=== PATIENT | female | born 1970 | race Caucasian/White ===

== ENCOUNTER 2017-03-17 22:16 | Emergency (ER) | payer OTHER ==
[2017-03-17] MEDS ORDERED: Nitrostat 0.4 MG (ED) SL ONE (22:36)
[2017-03-17] MEDS ORDERED: Zofran 4 MG/2 ML VIAL ONE (22:36)
[2017-03-17] MEDS ORDERED: MORPHINE SULFATE 2 MG INJ ONE (22:36)
[2017-03-17] MEDS ORDERED: Effient 10 MG TABLET ONE (22:37)
[2017-03-17] MEDS ORDERED: Ntg 0.2MG/Ml in D5W GLASS*** 250 ML IV ONE (22:37)
[2017-03-17 22:39] VITALS: O2SAT 99
[2017-03-17 22:44] LABS: BASOPHIL % 0.1 % (0.0-0.4); Eosinophil % 2.5 % (0.00-5.0); Granulocytes % 62.9 % (36.0-66.0); INR 0.98 (0.8-3.0); Lymphocytes % 26.8 % (24.0-44.0); Mean Cell Volume 90.1 fl (78-100); Mean Corpuscular Hemoglobin 30.1 pg (26-32); Mean Platelet Volume 12.2 fl (6-9.5); Monocytes % 7.7 % (0.0-12.0); PROTIME 11.1 SECONDS (9.95-12.35); Platelet Count 290 K/mm3 (150-450); Red Blood Count 4.75 M/mm3 (4.1-5.4); Red Cell Distribution Width 13.5 % (11.5-14.0); White Blood Count 13.9 K/mm3 (4.0-10.5)
--- NOTE | 2017-03-17 22:44 | ERPHSYRPT ---
- History of Present Illness Time Seen by Provider: 03/17/17 22:25 Source: patient Exam Limitations: no limitations Physician History: FOR THE PAST 7 DAYS PT HAS HAD SHORTNESS OF AIR AND INTERMITTENT ANTERIOR CHEST PAIN RADIATING DOWN BOTH ARMS LASTING UP TO 90 MINUTES PER EPISODE; FOR THE PAST 5 DAYS DIAPHORESIS, CHILLS AND SORE THROAT. PT HAS BEEN TAKING AUGMENTIN FOR THE PAST 5 DAYS. PT DENIES ABDOMINAL PAIN, VOMITING, RASH. Allergies/Adverse Reactions: No Known Drug Allergies Allergy (Unverified 03/17/17 22:44) Home Medications: Alprazolam 1 mg [Xanax 1 mg] 1 mg PO DAILY 03/17/17 [History] Aspirin 325 mg PO DAILY 03/17/17 [History] Bupropion HCl 150 mg Sr [Wellbutrin SR 150 MG] 150 mg PO BID 03/17/17 [ History] Carvedilol 6.25 mg [Coreg 6.25 MG] 1 tab PO BID 03/17/17 [History] Lisinopril 10 mg PO DAILY 03/17/17 [History] Ranitidine HCl [Zantac] 150 mg PO DAILY 03/17/17 [History] - Review of Systems Constitutional: Chills Ears, Nose, & Throat: Throat Pain Respiratory: Dyspnea Cardiac: Chest Pain Endocrine: Excessive Sweating All Other Systems: Reviewed and Negative - Nursing Vital Signs Nursing Vital Signs: Initial Vital Signs Temperature 97.5 F 03/17/17 22:17 Pulse Rate 82 03/17/17 22:17 Respiratory Rate 16 03/17/17 22:17 Blood Pressure 177/127 03/17/17 22:17 O2 Sat by Pulse Oximetry 99 03/17/17 22:17 Pain Scale Pain Intensity 8 - Physical Exam General Appearance: alert Eye Exam: PERRL/EOMI Ears, Nose, Throat Exam: TMs normal, pharynx normal, moist mucous membranes Neck Exam: normal inspection Respiratory Exam: lungs clear Cardiovascular Exam: normal heart sounds Gastrointestinal/Abdomen Exam: soft, normal bowel sounds Back Exam: normal range of motion Extremity Exam: No pedal edema Neurologic Exam: alert, cooperative Skin Exam: warm, dry - Course Nursing assessment & vital signs reviewed: Yes EKG Interpreted by Me: RATE (76), Sinus Rhythm, NORMAL AXIS, NORMAL INTERVALS, ST Elev (V1 -V4) Ordered Tests: Active Orders 24 hr Category Date Time Status Portfolio Consultant STAT Care 03/17/17 22:35 Active EKG-ER Only STAT Care 03/17/17 22:29 Active IV Insertion STAT Care 03/17/17 22:29 Active Oxygen-ED Only NASAL CANNULA 4 lpm Care 03/17/17 22:29 Active Pulse Oximetry (ED) STAT Care 03/17/17 22:29 Active CHEST 1 VIEW (PORTABLE) Stat Exams 03/17/17 22:35 Taken AMYLASE Stat Lab 03/17/17 22:30 Received CBC W DIFF Stat Lab 03/17/17 22:30 Completed CMP Stat Lab 03/17/17 22:30 Received LIPASE Stat Lab 03/17/17 22:30 Received MAGNESIUM Stat Lab 03/17/17 22:30 Received NT PRO BNP Stat Lab 03/17/17 22:30 Received PROTIME WITH INR Stat Lab 03/17/17 22:30 Completed PTT Stat Lab 03/17/17 22:30 Completed TROPONIN Q3H Lab 03/17/17 22:30 Received TROPONIN Q3H Lab 03/18/17 01:45 Ordered TROPONIN Q3H Lab 03/18/17 04:45 Ordered TROPONIN Q3H Lab 03/18/17 07:45 Ordered TROPONIN Q3H Lab 03/18/17 10:45 Ordered Medication Summary Discontinued Medications Generic Name Dose Route Start Last Admin Trade Name Freq PRN Reason Stop Dose Admin Nitroglycerin/Dextrose Confirm 03/17/17 22:37 Ntg 0.2mg/Ml In D5w Glass Administered 03/17/17 22:38 Dose 250 mls @ ud IV .STK-MED ONE Morphine Sulfate Confirm 03/17/17 22:36 Morphine Sulfate 2 Mg Inj Administered 03/17/17 22:37 Dose 2 mg .ROUTE .STK-MED ONE Nitroglycerin Confirm 03/17/17 22:36 Nitrostat 0.4 Mg (Ed) Administered 03/17/17 22:37 Dose 0.4 mg SL .STK-MED ONE Ondansetron HCl Confirm 03/17/17 22:36 Zofran 4 Mg/2 Ml Vial Administered 03/17/17 22:37 Dose 4 mg .ROUTE .STK-MED ONE Prasugrel Confirm 03/17/17 22:37 Effient 10 Mg Tablet Administered 03/17/17 22:38 Dose 60 mg .ROUTE .STK-MED ONE Lab/Rad Data: Laboratory Result Diagrams 03/17/17 22:30 Laboratory Results 03/17/17 03/17/17 Range/Units 22:30 22:30 WBC 13.9 H (4.0-10.5) K/mm3 RBC 4.75 (4.1-5.4) M/mm3 Hgb 14.3 (12.0-16.0) gm/dl Hct 42.8 (35-47) % MCV 90.1 (78-100) fl MCH 30.1 (26-32) pg MCHC 33.4 (32-36) g/dl RDW 13.5 (11.5-14.0) % Plt Count 290 (150-450) K/mm3 MPV 12.2 H (6-9.5) fl Gran % 62.9 (36.0-66.0) % Lymphocytes % 26.8 (24.0-44.0) % Monocytes % 7.7 (0.0-12.0) % Eosinophils % 2.5 (0.00-5.0) % Basophils % 0.1 (0.0-0.4) % Basophils # 0.02 (0-0.4) INR 0.98 (0.8-3.0) APTT 33.0 (25.3-37.0) SECONDS - Progress Discussed with Dr.: Other (SPOKE WITH DR KUMAR(ER DR)([id number]) WHO ACCEPTED PT FOR TRANSFER TO [facility].) - Departure Time of Disposition: 22:52 Departure Disposition: Transfer ([facility]) Clinical Impression: ACUTE FL Condition: Stable Critical Care Time: No Referrals: MADALYN JIMENEZ [Primary Care Provider] -
[2017-03-17] MEDS ORDERED: Sodium Chloride 0.9% 1000 ML 1,000 ML ONE (22:56)
[2017-03-17 22:58] VITALS: BP 134/95; PULSE 86
[2017-03-17 22:59] LABS: ALBUMIN 3.5 g/dL (3.4-5.0); ALKALINE PHOSPHATASE 101 U/L (46-116); ANION GAP 15.5 MEQ/L (5-15); BLOOD UREA NITROGEN 12 mg/dL (9-20); CHLORIDE 103 mEq/L (98-107); Glucose 113 MG/DL (70-110); LIPASE 179 U/L (73-393); MAGNESIUM 1.6 mg/dL (1.8-2.4); Potassium 3.9 mEq/L (3.5-5.1); SGOT/AST 25 U/L (15-37); SGPT/ALT 24 U/L (12-78); SODIUM 138 mEq/L (136-145); Total Protein 7.7 gm/dL (6.4-8.2)
--- NOTE | 2017-03-18 16:41 | XRAY ---
Exam: AP portable chest film from 2240 hrs. on 03/17/2017. Comparison: AP upright portable chest film from 04/01/2008. Indication: Pain. Findings: Slight motion artifact is noted. Multiple leads overlie the chest. The heart size and contour are normal. The lungs are adequately inflated. No gross infiltrates, central vascular congestion, pneumothorax, or pleural fluid is seen. No acute osseous abnormalities are seen. There is slight convexity of the upper mid thoracic spine toward the right. Impression: 1. Mildly limited AP portable chest radiograph revealing no acute cardiopulmonary disease.
== END 2017-03-17 23:00 | disposition short-term general hospital (02) ==
LOC: ED 22:16
DX: I21.3 ST elevation (STEMI) myocardial infarction of unspecified site (principal); R07.9 Chest pain, unspecified; R06.00 Dyspnea, unspecified; R61 Generalized hyperhidrosis
CPT/HCPCS: 36000; 36415; 71010; 80053; 82150; 83690; 83735; 83880; 84484; 85025; 85610; 85730; 93005; 93041; 96360; 96365; 96374; 96375; 99291; J2270; J2405; A9270-GY

== ENCOUNTER 2021-04-16 17:25 | Emergency (ER) | payer OTHER ==
[2021-04-16 17:50] LABS: Absolute Neutrophil Ct (ANC) 10.53 (1.4-6.9); BASOPHIL % 0.3 % (0.0-0.4); Basophil (Absolute #) 0.04 (0-0.4); Eosinophil % 2.3 % (0.00-5.0); Eosinophil (Absolute #) 0.32 (0-0.5); Hematocrit 43.4 % (35-47); Hemoglobin 14.2 gm/dl (12.0-16.0); Lymphocyte (Absolute #) 2.42 (1.0-4.6); Lymphocytes % 17.3 % (24.0-44.0); Mean Cell Volume 95.2 fl (78-100); Mean Corpuscular Hemoglobin 31.1 pg (26-32); Mean Corpuscular Hgb Concent. 32.7 g/dl (32-36); Mean Platelet Volume 11.2 fl (7.5-11.0); Monocyte (Absolute #) 0.71 (0.0-1.3); Monocytes % 5.1 % (0.0-12.0); Platelet Count 355 K/mm3 (150-450); Red Blood Count 4.56 M/mm3 (4.1-5.4); Red Cell Distribution Width 13.7 % (11.5-14.0)
[2021-04-16 17:59] LABS: INR 0.94 (0.8-3.0); PROTIME 11.1 SECONDS (9.4-12.5)
[2021-04-16 18:02] LABS: PTT 28.6 SECONDS (25.1-36.5)
[2021-04-16 18:12] LABS: ALBUMIN 4.1 g/dL (3.5-5.0); ALKALINE PHOSPHATASE 77 U/L (38-126); ANION GAP 11.6 MEQ/L (5-15); BLOOD UREA NITROGEN 19 mg/dL (7-17); CHLORIDE 101 mmol/L (98-107); Calcium 8.8 mg/dL (8.4-10.2); Carbon Dioxide 26 mmol/L (22-30); Creatinine 1 0.83 mg/dL (0.52-1.04); EST GLOMERULAR FILTRATION RATE > 60.0 ML/MIN; Glucose 160 mg/dL (74-106); Potassium 3.6 mmol/L (3.5-5.1); SGOT/AST 19 U/L (14-36); SGPT/ALT 16 U/L (0-35); SODIUM 135 mmol/L (137-145); Total Protein 7.4 g/dL (6.3-8.2)
--- NOTE | 2021-04-16 18:17 | ERPHSYRPT ---
- History of Present Illness Historian: patient Exam Limitations: other (Poor historian) Patient Subjective Stated Complaint: Chest pain Triage Nursing Assessment: Patient ambulated back to ED and transferred self to bed. Patient A+O X3. Patient's skin pink, warm and dry. Patient states she has been having chest pains on and off all day. Patient had called EMS prior to c oming into ED but decided to bring self. Patient currently denies pain or discomfort. Lungs clear a/p keshawn. no edema noted. Physician History: 50 yo wf w h/o ME/Stents x2/HTN/hyperlipidemia/tobacco abuse present w mid- sternal chest pain x10hrs. Pt is pain free upon arrival but has been up to a 7. It has been sharp wo radiation and accompanied w nausea/diaphoresis wo vomi ting/dyspnea. Pt states that pain was made better w SL NTG x4. She has not taken any of her meds x 1-2 months and has not taken an ASA today. Timing/Duration: today (10hrs) Activities at Onset: rest Quality: sharpness Location: substernal, central Chest Pain Radiation: no radiation Severity of Pain-Max: moderate Severity of Pain-Current: none Modifying Factors: Improves With: nitroglycerin Associated Symptoms: nausea, diaphoresis, No vomiting, No palpitations, No heartburn, No abdominal pain, No shortness of breath, No cough, No hurts to breathe, No chills, No fever, No fatigue, No weakness, No swelling/lump in chest, No syncope, No rash, No headache, No dizziness, No edema Prior Chest Pain/Cardiac Workup: heart attack Nitro Today/Relief: 0.4 mg x 4, provided at home Aspirin Treatment Today: no aspirin today Allergies/Adverse Reactions: No Known Drug Allergies Allergy (Verified 04/16/21 17:26) Hx Influenza Vaccination/Date Given: No Hx Pneumococcal Vaccination/Date Given: No Immunizations Up to Date: Yes Travel Risk - International Travel Have you traveled outside of the country in past 3 weeks: No - Coronavirus Screening Are you exhibiting any of the following symptoms?: No Close contact with a COVID-19 positive Pt in past 14-21 Days: No - Vaccine Status Have you recieved a Covid-19 vaccination: No - Review of Systems Constitutional: No Symptoms Eyes: No Symptoms Ears, Nose, & Throat: No Symptoms Respiratory: No Symptoms Cardiac: No Symptoms, Chest Pain Abdominal/Gastrointestinal: Nausea, No Abdominal Pain, No Vomiting, No Diarrhea, No Constipation, No Hematemesis, No Hematochezia, No Melena, No Dysphagia, No Appetite Changes Genitourinary Symptoms: No Symptoms Musculoskeletal: No Symptoms Skin: No Symptoms Neurological: No Symptoms Psychological: No Symptoms Endocrine: No Symptoms Hematologic/Lymphatic: No Symptoms Immunological/Allergic: No Symptoms - Past Medical History Pertinent Past Medical History: Yes Cardiac History: Hypertension, Myocardial Infarction (ME) GI Medical History: GERD Psycho-Social History: Anxiety - Past Surgical History Past Surgical History: Yes Cardiac: Cardiac Catheterization, Cardiac Stent Respiratory: No Pertinent History Gastrointestinal: No Pertinent History Genitourinary: No Pertinent History Musculoskeletal: No Pertinent History Female Surgical History: Tubal Ligation Other Surgical History: Stents X 2 in 2017 - Social History Smoking Status: Current every day smoker How long have you smoked: years Exposure to second hand smoke: No Drug Use: marijuana Patient Lives Alone: No Significant Family History: no pertinent family hx - Female History Hx Last Menstrual Period: few days ago Hx Now: No - Nursing Vital Signs Nursing Vital Signs: Initial Vital Signs Temperature 98.0 F 04/16/21 17:27 Pulse Rate 77 04/16/21 17:27 Respiratory Rate 18 04/16/21 17:27 Blood Pressure 114/95 04/16/21 17:27 O2 Sat by Pulse Oximetry 100 04/16/21 17:27 Pain Scale Pain Intensity 0 WNL - Physical Exam General Appearance: no apparent distress, anxiety Eye Exam: PERRL/EOMI, eyes nml inspection Ears, Nose, Throat Exam: normal ENT inspection, TMs normal, pharynx normal, moist mucous membranes Neck Exam: normal inspection, non-tender, supple, full range of motion, No meningismus, No mass, No Brudzinski, No Kernig's, No carotid bruit, No JVD Respiratory Exam: normal breath sounds, lungs clear, airway intact, No chest tenderness, No respiratory distress Cardiovascular Exam: regular rate/rhythm, normal heart sounds, normal peripheral pulses, capillary refill <2 sec, No murmur Gastrointestinal/Abdomen Exam: soft, normal bowel sounds, No tenderness Back Exam: normal inspection, normal range of motion, No CVA tenderness Extremity Exam: normal inspection, normal range of motion Neurologic Exam: alert, oriented x 3, cooperative, senior tax specialist II-XII nml as tested, normal mood/affect, nml cerebellar function, nml station & gait, sensation nml Skin Exam: normal color, warm, dry Lymphatic Exam: No adenopathy SpO2 Interpretation: normal SpO2: 100 O2 Delivery: Room Air - Course Nursing assessment & vital signs reviewed: Yes EKG Interpreted by Me: RATE (NSR/R81/Prolonged QTc/No acute ST changes) - Radiology Exams Chest X-ray Interpretation: Interpreted by me (CXR-NAD) Ordered Tests: Active Orders 24 hr Category Date Time Status EKG-ER Only STAT Care 04/16/21 17:36 Completed IV Insertion STAT Care 04/16/21 17:36 Completed CHEST 1 VIEW (PORTABLE) Stat Exams 04/16/21 17:36 Taken CBC W DIFF Stat Lab 04/16/21 17:40 Completed CMP Stat Lab 04/16/21 17:40 Completed NT PRO BNP Stat Lab 04/16/21 17:40 Completed PROTIME WITH INR Stat Lab 04/16/21 17:40 Completed PTT Stat Lab 04/16/21 17:40 Completed TROPONIN Q3H Lab 04/16/21 17:40 Completed TROPONIN Q3H Lab 04/16/21 19:50 Completed TROPONIN Q3H Lab 04/16/21 23:45 Ordered Medication Summary Discontinued Medications Generic Name Dose Route Start Last Admin Trade Name Capoq PRN Reason Stop Dose Admin Aspirin 324 mg 04/16/21 18:19 04/16/21 18:22 Baby Aspirin 81 Mg Chew PO 04/16/21 18:20 324 mg STAT ONE Administration Aspirin Confirm 04/16/21 18:21 Baby Aspirin 81 Mg Chew Administered 04/16/21 18:22 Dose 324 mg .ROUTE .STK-MED ONE Lab/Rad Data: Laboratory Result Diagrams 04/16/21 17:40 04/16/21 17:40 Laboratory Results 04/16/21 04/16/21 04/16/21 Range/Units 19:50 17:40 17:40 WBC (4.0-10.5) K/mm3 RBC (4.1-5.4) M/mm3 Hgb (12.0-16.0) gm/dl Hct (35-47) % MCV (78-100) fl MCH (26-32) pg MCHC (32-36) g/dl RDW (11.5-14.0) % Plt Count (150-450) K/mm3 MPV (7.5-11.0) fl Gran % (36.0-66.0) % Eos # (Auto) (0-0.5) Absolute Lymphs (auto) (1.0-4.6) Absolute Monos (auto) (0.0-1.3) Lymphocytes % (24.0-44.0) % Monocytes % (0.0-12.0) % Eosinophils % (0.00-5.0) % Basophils % (0.0-0.4) % Absolute Granulocytes (1.4-6.9) Basophils # (0-0.4) PT 11.1 (9.4-12.5) SECONDS INR 0.94 (0.8-3.0) APTT 28.6 (25.1-36.5) SECONDS Sodium (137-145) mmol/L Potassium (3.5-5.1) mmol/L Chloride (98-107) mmol/L Carbon Dioxide (22-30) mmol/L Anion Gap (5-15) MEQ/L BUN (7-17) mg/dL Creatinine (0.52-1.04) mg/dL Estimated GFR ML/MIN Glucose (74-106) mg/dL Calcium (8.4-10.2) mg/dL Total Bilirubin (0.2-1.3) mg/dL AST (14-36) U/L ALT (0-35) U/L Alkaline Phosphatase (38-126) U/L Troponin I < 0.012 < 0.012 (0.000-0.034) ng/mL NT-Pro-B Natriuret Pep (0-900) pg/mL Serum Total Protein (6.3-8.2) g/dL Albumin (3.5-5.0) g/dL 04/16/21 04/16/21 Range/Units 17:40 17:40 WBC 14.0 H (4.0-10.5) K/mm3 RBC 4.56 (4.1-5.4) M/mm3 Hgb 14.2 (12.0-16.0) gm/dl Hct 43.4 (35-47) % MCV 95.2 (78-100) fl MCH 31.1 (26-32) pg MCHC 32.7 (32-36) g/dl RDW 13.7 (11.5-14.0) % Plt Count 355 (150-450) K/mm3 MPV 11.2 H (7.5-11.0) fl Gran % 75.0 H (36.0-66.0) % Eos # (Auto) 0.32 (0-0.5) Absolute Lymphs (auto) 2.42 (1.0-4.6) Absolute Monos (auto) 0.71 (0.0-1.3) Lymphocytes % 17.3 L (24.0-44.0) % Monocytes % 5.1 (0.0-12.0) % Eosinophils % 2.3 (0.00-5.0) % Basophils % 0.3 (0.0-0.4) % Absolute Granulocytes 10.53 H (1.4-6.9) Basophils # 0.04 (0-0.4) PT (9.4-12.5) SECONDS INR (0.8-3.0) APTT (25.1-36.5) SECONDS Sodium 135 L (137-145) mmol/L Potassium 3.6 (3.5-5.1) mmol/L Chloride 101 (98-107) mmol/L Carbon Dioxide 26 (22-30) mmol/L Anion Gap 11.6 (5-15) MEQ/L BUN 19 H (7-17) mg/dL Creatinine 0.83 (0.52-1.04) mg/dL Estimated GFR > 60.0 ML/MIN Glucose 160 H (74-106) mg/dL Calcium 8.8 (8.4-10.2) mg/dL Total Bilirubin 0.40 (0.2-1.3) mg/dL AST 19 (14-36) U/L ALT 16 (0-35) U/L Alkaline Phosphatase 77 (38-126) U/L Troponin I (0.000-0.034) ng/mL NT-Pro-B Natriuret Pep 34.0 (0-900) pg/mL Serum Total Protein 7.4 (6.3-8.2) g/dL Albumin 4.1 (3.5-5.0) g/dL - Progress Progress: improved Progress Note: 04/16/21 19:30 324 ASA po 04/16/21 20:51 Pt w neg trop x2 and no active chest pain in ER. Pt refuses admit at this time. Risks/benefits explained. Pt to f/u w Dr. Horowitz in AM. Lisinopril/Carvadalol/Atorvastatin restarted at low doses. Pt urged to take 81mg ASA po daily. Counseled pt/family regarding: lab results, diagnosis, need for follow-up, rad results - Departure Departure Disposition: Home Clinical Impression: Chest pain, Noncompliance Condition: Stable Critical Care Time: No Referrals: MADALYN JIMENEZ NP [Primary Care Provider] - Instructions: Angina (DC), Chest Pain (DC) Additional Instructions: Follow up with Dr. Horowitz in AM Take 81mg aspirin daily Also start Atorvastatin once a day/Carvedilol twice a day//Lisinopril once a day Stop smoking Return to ER for increasing chest pain or shortness of breath Prescriptions: Atorvastatin Calcium 20 mg PO DAILY #30 tablet Carvedilol 3.125 mg [Coreg 3.125 MG] 3.125 mg PO BID #60 tablet Lisinopril 10 mg [Zestril 10 MG] 10 mg PO DAILY #30 tablet
[2021-04-16] MEDS ORDERED: BABY ASPIRIN 81 MG CHEW PO ONE (18:19)
[2021-04-16] MEDS ORDERED: BABY ASPIRIN 81 MG CHEW ONE (18:21)
[2021-04-16 20:07] VITALS: BP 133/108; PULSE 90
[2021-04-16 20:29] VITALS: O2SAT 100
--- NOTE | 2021-04-17 08:46 | XRAY ---
Indication: Chest pain. Comparison: March 17, 2017. Portable chest demonstrates normal heart, lungs, and bony thorax.
== END 2021-04-16 20:55 | disposition home or self-care (01) ==
LOC: ED 17:25
DX: R07.9 Chest pain, unspecified (principal); Z91.19 Patient's noncompliance with other medical treatment and regimen
CPT/HCPCS: 36000; 36415; 71045; 80053; 83880; 84484; 85025; 85610; 85730; 93005; 99284; A9270-GY